=== PATIENT | female | born 1985 | race Caucasian/White ===

== ENCOUNTER 2017-10-13 12:56 | Emergency (ER) | payer OTHER ==
[~2017-10-13] VITALS: Ht 165.1 cm; Wt 94.6 kg
[~2017-10-13 12:56] MED LIST: CIPR-255 PO
[2017-10-13 12:58] VITALS: TEMP 36.8; Ht 165.1 cm; Wt 94.6 kg
--- NOTE | 2017-10-13 13:47 | DIAGNOSTIC IMAGING REPORT ---
RIGHT ANKLE 3 VIEWS CLINICAL HISTORY: Right ankle pain. FINDINGS: 3 views of the right ankle are obtained. No prior studies are available for comparison at the time of dictation. The skeletal structures are well mineralized. No fracture is seen. The ankle mortise is intact. There is no joint effusion. Mild soft tissue swelling is present around the ankle. IMPRESSION: Mild soft tissue swelling with no radiographic evidence of fracture. Electronically signed by: Guillermo Eubanks M.D. 10/13/2017 1:45 PM Dictated Date/Time: 10/13/2017 1:45 PM
[2017-10-13] MEDS ORDERED: HYDR-5688 PO (14:09)
[2017-10-13 14:27] VITALS: BP 150/107; PULSE 107; O2SAT 97
--- NOTE | 2017-10-13 17:01 | EMERGENCY ROOM VISIT NOTE ---
ED Visit Note First contact with patient: 13:11 Chief complaint: Right ankle pain. HPI: This 31-year-old white female presents to the emergency room for evaluation of her right ankle. The patient injured the ankle last night when she fell down a few steps. She states she missed a step and fell, landing on a sidewalk. Since that time, they have had persistent pain over the lateral portion of the ankle. They deny any numbness or tingling. Pain is worse with weight-bearing. They have been walking with a limp. no knee or hip pain. No pop or snap with injury. Treatment has consisted of ice and elevation. No prior history of significant ankle injury. Pain is 7/10. REVIEW OF SYSTEM: HEENT: No dizziness, visual problems, hearing loss, tinnitus. There is no difficulty swallowing and no oral lesions are present. PULMONARY: No cough, shortness of breath, sputum production or hemoptysis. CARDIOVASCULAR: No chest pain, palpitations, shortness of breath or peripheral edema. GASTROINTESTINAL: No diarrhea, constipation, nausea, vomiting, or abdominal pain. GENITOURINARY: No dysuria, frequency, urgency or nocturia. NEUROLOGIC: No weakness, muscle tenderness, epilepsy or history of neurological problems. MUSCULOSKELETAL: No history of joint tenderness/swelling. No history of arthritis or arthralgias. SKIN: No rashes or lesions. PSYCHIATRIC: No history of depression or mental illness. ENDOCRINE: No history of diabetes, thyroid disorders, abnormal hair growth. PAST MEDICAL HISTORY: Supplemental sheet was reviewed and signed. Previous surgeries: 2 Medical history: Unremarkable Current medications: None Allergies: Sulfa drugs Family history: Significant for diabetes, hypertension, cancer, and kidney stones. Parents are living. Social history: Employed. Lives with her father and her children. No tobacco use, occasional EtOH use. PHYSICAL EXAM: Vitals: Afebrile. Reviewed and filed in patient's chart General: Well-developed, well-nourished, young white female, in obvious discomfort. No acute distress. She is sitting on a bed. Alert and oriented. Skin:Warm and dry with good turgor. No rashes or lesions. No erythema. The patient is not diaphoretic. No abrasions. Edema is present at the lateral ankle. Tattoos are present. Musculoskeletal: Right ankle evaluation reveals no pain with palpation across the knee or proximal tibia or fibula. There is pain with palpation over the lateral malleolus and the lateral ligaments. Pain is worst posterior. No pain over the medial malleolus or deltoid ligament. Achilles' tendon is palpated through its entirety and found to be intact and without defect. Normal Thomas test. No pain with palpation of the calcaneus, fifth metatarsal base, midfoot, forefoot, or toes. Motor function to the toes is intact and unremarkable. Motor function to the ankle is intact but range of motion is limited by pain. Strength is 5/5 for resisted motion. Positive anterior drawer , positive calcaneal tilt. Neurologic: Gross sensation is intact across all aspects of the foot and ankle via soft touch. Peripheral pulses are 2+. Data: Radiographic images of the ankle were obtained today and were reviewed by me as well as radiology. They are unremarkable for fracture or other bony abnormality. IMPRESSION: Right ankle sprain. PLAN: The patient was educated regarding today's findings. Conservative care measures were discussed. Patient was given compressigrip for edema control and will use this for the next 5 days. Ankle gel splint was also applied and will be used for support for the next 3 weeks. It may be removed for bathing and sleep. It should be used for a few additional weeks for sporting events only. Crutches were fitted and crutch instruction was reviewed. Discontinue crutch use when she is able to walk without a limp. Weight-bear as tolerable. Gentle motion daily. Ice and elevate intermittently over the next 3 days, after which she may switch to moist heat. Lower leg should be elevated at night during sleep. Tylenol and ibuprofen every 6 hours as needed for discomfort. Prescription was provided for Ririe 5 mg to be used every 6 hours as needed for severe pain. Driving precautions were given. Sprain handout was provided. Return to the ER for any acute changes. Follow-up with her PCP or orthopedist if not improving in 5 to 7 days. Problem List Surgical Problems: (1) H/O section Status: Resolved Current/Historical Medications Scheduled PRN Hydrocodone/Acetaminophen 5MG/325MG (Ririe 5MG/325MG), 1 TABLET PO Q6H PRN for Pain Allergies Coded Allergies: Sulfa Drugs (Verified Allergy, Mild, 10/13/17) Vital Signs Date Time Temp Pulse Resp B/P (MAP) Pulse Ox O2 Delivery O2 Flow Rate FiO2 10/13/17 14:27 107 16 150/107 97 10/13/17 12:58 36.8 97 18 153/88 97 Room Air Departure Information Impression Primary Impression: Right ankle sprain Dispostion Home / Self-Care Condition GOOD Prescriptions Hydrocodone/Acetaminophen 5MG/325MG (Ririe 5MG/325MG) Tab 1 TABLET PO Q6H Y for Pain, #10 TAB For Initial Treatment Prov: Adalberto Doyle,P.A. 10/13/17 Forms WORK / SCHOOL INSTRUCTIONS, HOME CARE DOCUMENTATION FORM, SPECIAL NARCOTICS INSTRUCTIONS, MOTRIN USE, TYLENOL USE, IMPORTANT VISIT INFORMATION Patient Instructions [facility] Additional Instructions Use crutches until you can walk without a limp- weight-bear as tolerable Ice and elevate intermittently x3 days, and then use moist heat Tylenol and ibuprofen every 6 hours as needed for pain Substitute hydrocodone 5 mg every 6 hours as needed for severe pain-no driving Gentle motion daily See your PCP or orthopedist if not improving over 5-7 days Use gel splint at all times other than bathing and sleep for 3 weeks, and then use it for an additional 2 weeks for any sporting activity
== END 2017-10-13 14:26 | disposition home or self-care (01) ==
LOC: C.EDB 12:57 → C.EDD 14:26
DX: S93.401A Sprain of unspecified ligament of right ankle, initial encounter (principal); W10.9XXA Fall (on) (from) unspecified stairs and steps, initial encounter; Y92.480 Sidewalk as the place of occurrence of the external cause; Z98.891 History of uterine scar from previous surgery; Z88.2 Allergy status to sulfonamides; Z83.3 Family history of diabetes mellitus; Z82.49 Family history of ischemic heart disease and other diseases of the circulatory system; Z84.1 Family history of disorders of kidney and ureter